=== PATIENT | female | born 1970 | race Caucasian/White ===

== ENCOUNTER 2017-07-02 21:22 | Inpatient (IN) | payer MEDICAID ==
[~2017-07-02] VITALS: Ht 154.9 cm; Wt 39.9 kg
[~2017-07-02 21:22] MED LIST: DOXY100C PO
[2017-07-02] MEDS ORDERED: SODIUM CHLORIDE 0.9% 1,000 ML IV ONE ×2 (21:37→23:27)
[2017-07-02 23:06] LABS: HEMATOCRIT. 30.4 % (36.0-48.0); HEMOGLOBIN. 9.7 g/dL (12.0-16.0); MEAN CORPUSCULAR HEMOGLOBIN 27.4 pg (28.0-32.0); MEAN CORPUSCULAR VOLUME 85.8 fL (81.0-99.0); MEAN PLATELET VOLUME 8.6 fl (7.4-10.4); PLATELET 299 x1000/uL (130-400); RED BLOOD CELL COUNT 3.54 mill/uL (4.2-5.4); RED CELL DISTRIBUTION WIDTH 18.3 % (11.6-14.6)
[2017-07-02 23:10] LABS: INR 1.1; PROTHROMBIN TIME 11.5 sec (9.4-11.6)
[2017-07-02 23:14] LABS: CARBON DIOXIDE 14 mEq/L (21-32); CHLORIDE 91 mEq/L (98-107)
[2017-07-02 23:16] LABS: HCG SCREEN NEGATIVE
[2017-07-02 23:18] LABS: PLATELET ESTIMATE NORMAL
[2017-07-02 23:20] LABS: TROPONIN I < 0.02 ng/mL (0.00-0.04)
[2017-07-02] MEDS ORDERED: SODIUM POLYSTYRENE SULFONATE 15 G/60 ML BOT PO ONE (23:30)
[2017-07-02] MEDS ORDERED: DEXTROSE 50% WATER 50ML SYRINGE IV ONE (23:30)
[2017-07-02] MEDS ORDERED: VANCOMYCIN 1 G PREMIX 200 ML IV SCH ×2 (23:30→23:45)
[2017-07-02] MEDS ORDERED: CALCIUM CHLORIDE 1GM/10ML SYR IV ONE (23:30)
[2017-07-02] MEDS ORDERED: PIPERACILLIN/TAZ 3.375G PREMIX 50 ML IV ONE (23:30)
[2017-07-02] MEDS ORDERED: SODIUM BICARBONATE 8.4% 1 MEQ/ML 50ML SYR IV ONE (23:30)
[2017-07-02] MEDS ORDERED: INSULIN REGULAR (HUMULIN R) 300UNITS/3ML IV ONE (23:30)
[2017-07-02] MEDS ORDERED: DIPHENHYDRAMINE 50MG/ML VIAL IV PRN (23:45)
[2017-07-02] MEDS ORDERED: ACETAMINOPHEN 325MG TABLET PO PRN (23:45)
[2017-07-02] MEDS ORDERED: ACETAMINOPHEN 650MG/20.3ML UDC GT PRN (23:45)
[2017-07-02] MEDS ORDERED: MAGNESIUM/ALUMINUM HYDROXIDE/SIMETHICONE 30ML UDC PO PRN (23:45)
[2017-07-02] MEDS ORDERED: GUAIFENESIN 200MG/10ML SUGAR FREE UDC PO PRN (23:45)
[2017-07-02] MEDS ORDERED: IPRATROPIUM/ALBUTEROL 0.5-3(2.5)MG/3ML NEB INH PRN (23:45)
[2017-07-02] MEDS ORDERED: ACETAMINOPHEN 650MG SUPP PR PRN (23:45)
[2017-07-02] MEDS ORDERED: NA PHOS,M-B/NA PHOS,DI-BA ENEMA 118ML PR PRN (23:45)
[2017-07-02] MEDS ORDERED: ONDANSETRON HCL 4MG/2ML VIAL IV PRN (23:45)
[2017-07-02] MEDS ORDERED: DOCUSATE SODIUM 100MG CAPSULE PO PRN (23:45)
[2017-07-02] MEDS ORDERED: CLONIDINE 0.1MG TABLET PO PRN (23:45)
[2017-07-02] MEDS ORDERED: MORPHINE SULFATE 4 MG/ML CPJ (NOT FOR IM USE) IV PRN (23:45)
[2017-07-02] MEDS ORDERED: NOREPINEPHRINE 4 MG in DEXT 5% WATER 246 ML IV ONE (23:45)
[2017-07-02] MEDS ORDERED: HYDROCODONE/ACETAMINOPHEN 5/325MG TABLET PO PRN (23:45)
[2017-07-02] MEDS ORDERED: PIPERACILLIN/TAZ 3.375G PREMIX 50 ML IV SCH (23:45)
[2017-07-03] VITALS (41 sets, daily range): BP systolic 39–117; BP diastolic 25–76
[2017-07-03] MEDS ORDERED: DEXTROSE 50% WATER 50ML SYRINGE IV NR (00:15)
[2017-07-03] MEDS: SODIUM CHLORIDE 0.9% 1,000 ML IV SCH ×3 (02:22→22:14)
[2017-07-03] MEDS ORDERED: NOREPINEPHRINE 4 MG in DEXT 5% WATER 246 ML IV PRN (04:15)
[2017-07-03] MEDS ORDERED: SODIUM CHLORIDE 0.9% INJ 3ML FLUSH IVF SCH (06:00)
[2017-07-03] MEDS ORDERED: METRONIDAZOLE 500 MG PREMIX 100 ML IV SCH (06:00)
[2017-07-03] MEDS ORDERED: METRONIDAZOLE 500MG TABLET PO SCH (06:00)
[2017-07-03 06:09] LABS: HEMATOCRIT. 32.8 % (36.0-48.0); HEMOGLOBIN. 10.5 g/dL (12.0-16.0); MEAN CORPUSCULAR HEMOGLOBIN 27.5 pg (28.0-32.0); MEAN CORPUSCULAR VOLUME 85.6 fL (81.0-99.0); MEAN PLATELET VOLUME 8.6 fl (7.4-10.4); PLATELET 239 x1000/uL (130-400); RED BLOOD CELL COUNT 3.84 mill/uL (4.2-5.4); RED CELL DISTRIBUTION WIDTH 18.2 % (11.6-14.6)
[2017-07-03 07:04] LABS: CARBON DIOXIDE 17 mEq/L (21-32); CHLORIDE 95 mEq/L (98-107); CREATINE KINASE 55 IU/L (26-192); HDL CHOLESTEROL 52 mg/dL (40-59); LDL CHOLESTEROL 68 mg/dL (5-100); TROPONIN I < 0.02 ng/mL (0.00-0.04)
[2017-07-03] MEDS ORDERED: PIPERACILLIN/TAZ 2.25G PREMIX 50 ML IV SCH (08:00)
[2017-07-03] MEDS ORDERED: LORAZEPAM 2MG/ML CPJ IV PRN (09:00)
[2017-07-03] MEDS ORDERED: MORPHINE SULFATE 100 MG in DEXT 5% WATER 90 ML IV PRN (10:00)
[2017-07-03 13:21] LABS: PLATELET ESTIMATE NORMAL
== END 2017-07-03 23:05 | disposition expired | DRG 720 ==
LOC: ER 21:29 → MICUSO 23:36 → EDBEDREQSVC 23:39 → EDBEDREQTM 23:39 → EDBEDREQ 23:39 → ENRESERV 23:54
PROVIDERS: ADMIT Family Medicine; ATTEND Family Medicine
DX: A41.9 Sepsis, unspecified organism (principal); J96.90 Respiratory failure, unspecified, unspecified whether with hypoxia or hypercapnia; N17.0 Acute kidney failure with tubular necrosis; R65.21 Severe sepsis with septic shock; E43 Unspecified severe protein-calorie malnutrition; R18.8 Other ascites; J90 Pleural effusion, not elsewhere classified; E87.5 Hyperkalemia; C56.9 Malignant neoplasm of unspecified ovary; Z66 Do not resuscitate; N32.89 Other specified disorders of bladder; L89.90 Pressure ulcer of unspecified site, unspecified stage; D64.9 Anemia, unspecified; N36.0 Urethral fistula; K22.8 Other specified diseases of esophagus; Z86.718 Personal history of other venous thrombosis and embolism; Z93.3 Colostomy status; Z90.49 Acquired absence of other specified parts of digestive tract; Z90.710 Acquired absence of both cervix and uterus; Z68.1 Body mass index [BMI] 19.9 or less, adult
CPT/HCPCS: 36415; 71010; 74176; 76770; 80053; 80061; 82550; 82962; 83605; 83690; 83880; 84484; 84703; 85025; 85610; 87040; 93005; 93306; 93970; 96361; 96365; 96375; 99291; J1815; J2270; J2543; J3370; J3490; J7030; J7060; A4315